=== PATIENT | male | born 1960 | race African-American/Black ===

== ENCOUNTER 2019-01-17 15:06 | Emergency (ER) | payer MEDICAID, OTHER ==
[~2019-01-17] VITALS: Ht 175.3 cm; Wt 69.9 kg
--- NOTE | 2019-01-17 16:35 | NUR ---
Dr Nick at the bedside for MSE.
--- NOTE | 2019-01-17 16:43 | NUR ---
Patient discharged to home in stable conditon. Written and verbal after care instructions given. Patient verbalizes understanding of instructions.
[2019-01-17 16:44] VITALS: BP 132/78
== END 2019-01-17 16:44 | disposition home or self-care (01) ==
LOC: ER 15:08
DX: G89.29 Other chronic pain (principal); M54.5 Low back pain
CPT/HCPCS: A4663